=== PATIENT | male | born 1955 | race Caucasian/White ===

== ENCOUNTER 2025-02-01 10:27 | Inpatient (IN) | payer MEDICARE, OTHER, SELFPAY ==
--- NOTE | 2025-01-17 13:23 | CM ---
Addendum entered by Mariola Toth RN 02/02/25 08:30:
CM met with patient in room. Patient is agreeable to [facility].
PLAN: home with [facility].
Addendum entered by Mariola Toth RN 01/24/25 12:05:
Demographics: confirmed
Living situation: lives with son, patient will have a friend drive him.
Support Person Post Operatively: Friend, son
History of
VN: No
SNF: No
[facility], [facility] unable to accept. Patient will be referred to [facility]
Has patient purchased required equipment: no, cm advised patient to contact Luis Miguel at [facility]
PCP: Horacio
Pharmacy: [facility]
Post Operative Discharge Plan: Home with home care.
Original Note:
CM reviewed medical records. CM left message for orthopedic [place]. CM will remain available as needed.
[2025-01-20 11:14] LABS: Hematocrit 45.0 % (39.0-52.0); Hemoglobin 15.1 g/dL (13.0-18.0); Mean Corp Hgb Conc. 33.6 g/dL (33.0-37.0); Mean Corpuscular Volume 87.5 fL (80.0-94.0); Platelet Count 340 10^3/uL (130-400); Red Cell Dist. Width 13.2 % (11.5-14.5)
[2025-01-20 11:58] LABS: Glycohemoglobin (HgbA1c) 5.3 % (4.0-5.6)
[2025-01-20 12:06] LABS: ALT (SGPT) 22 U/L (0-50); AST (SGOT) 22 U/L (17-59); Albumin 4.4 g/dl (3.5-5.0); Alkaline Phosphatase 93 U/L (38-126); Blood Urea Nitrogen 12 mg/dl (9-20); Calcium 9.5 mg/dl (8.4-10.2); Carbon Dioxide 28 mmol/L (22-30); Chloride 103 mmol/L (98-107); Glucose 91 mg/dl (70-99); Potassium 4.8 mmol/L (3.5-5.1); Sodium 137 mmol/L (135-145); Total Protein 8.0 g/dl (6.3-8.2); eGFR > 60.00
[2025-01-23 13:35] VITALS: BMI 27.4
[2025-01-27 09:24] VITALS: BMI 27.4
[2025-02-01] VITALS (12 sets, daily range): BP systolic 114–164; BP diastolic 73–103; PULSE 91; O2SAT 95; BMI 27.4
[2025-02-01] MEDS: TYLENOL 650 MG PO ×3 (10:42→20:11)
[2025-02-01] MEDS: CELEBREX 200 MG PO (10:43)
[2025-02-01] MEDS: NORMOSOL-R/PLASMALYTE-A 1000 IV ×2 (10:52→17:00)
--- NOTE | 2025-02-01 11:58 | W.PN.UPDATE ---
Update Note
Progress Note Update
L hip OA s/p L CARMEN w/ Dr Pearl 02/01/25
DVT prophylaxis - ASA, b/l venous foot pumps
HTN - + parameters - monitor BP
PACs, asymptomatic - monitor on tele
RODY per records, no current device - monitor O2
- IS
- Add supplemental O2 HS
Balance difficulties - on fall precautions
HLD
Scoliosis per imaging
Melanoma, status post Mohs
Rosacea.
Actinic keratosis
Anxiety with panic disorder
Remote history of tobacco abuse
[2025-02-01] MEDS: ROXICODONE 5 MG PO (15:02)
[2025-02-01] MEDS: DILAUDID 0.25 MG IV ×2 (15:22→15:37)
--- NOTE | 2025-02-01 18:15 | OR.RPT ---
Operative Report
Operative Report
Orthopaedic Surgery Operative Note
DATE OF OPERATION: 02/01/2025
PREOPERATIVE DIAGNOSES: Osteoarthritis, left hip
POSTOPERATIVE DIAGNOSES: Same
OPERATION PERFORMED: Left total hip arthroplasty.
SURGEON: Gian Pearl MD
BIAS CUTTER HELPER: José Browning PA-C who helped with patient and limb positioning and retraction
ANESTHESIA: Spinal
COMPLICATIONS: None.
ESTIMATED BLOOD LOSS: 50 mL.
DRAINS: None
SPECIMEN: None
FINDINGS: Advanced articular cartilage wear on the femoral head and acetabulum.
IMPLANTS:
Biomet G7 Acetabular Shell, cluster hole, size 58
Biomet G& Highly Crosslinked PE Liner, neutral
Maurilio M/L Taper femoral stem, size 13.5 with standard neck length and standard offset
Biolox Ceramic Head, size 40mm +3.5mm
INDICATIONS: The patient presented to my office with debilitating left leg pain due to osteoarthritis. We reviewed the natural history of this problem, as well as the risks, benefits, and alternatives of various treatment options. The patient
exhausted all nonoperative treatment options and wished to proceed with hip replacement surgery. The patient understood the risks which included, but were not limited to, bleeding, infection, failure to relieve pain, more pain than preop, damage to
blood vessels and nerves, need for reoperation, mechanical failure of the implants, wound healing problems, stiffness, instability, blood clot, pulmonary embolism, myocardial infarction, pneumonia, arrhythmia, CVA, and . The patient accepted
these risks and wished to proceed. All questions were answered, and informed consent was obtained.
PROCEDURE IN DETAIL: The patient was identified in the preoperative holding area. The left hip was identified as the operative site. The patient was taken in the operating room and transferred to the operative table. Spinal anesthesia was
performed. IV antibiotics and tranexamic acid were administered. The patient was placed in the lateral position with Stulberg hip positioners. Axillary roll was placed. The down leg was well padded. All bony prominences were well padded. The
operative limb was prepped and draped in the usual sterile fashion.
Time out was performed. A posterolateral approach to the hip was used. The skin incision was centered over the greater trochanter. This was taken down sharply through subcutaneous tissues. Meticulous hemostasis was achieved throughout the case with
electrocautery. We split the fascia darrel in line with skin incision. I split the gluteus lara bluntly. We cauterized all crossing vessels as we split it. I palpated the sciatic nerve and made sure it was well posterior in the operative field. It
was protected throughout the case.
I performed a partial bursectomy to identify the short external rotators. The gluteus medius and minimus were identified and retracted anteriorly. I incised the piriformis tendon and conjoint tendon at their insertions. These were tagged for later
repair. I then performed a trapezoidal capsulotomy. The edges were tagged for later repair. I referenced the cut edge of the capsular flap to 2 fixed points on the greater trochanter for assistance with recreation of limb length and offset. I then
dislocated the hip posteriorly. I performed a femoral neck osteotomy approximately 10 mm above the lesser trochanter, as per preoperative templating. The femoral head measured 55 mm in outer diameter. The distance between the neck cut and center of
the femoral head was measured to be 40 mm. I placed a curve hohmann retractor over the anterior lip of the acetabulum between the labrum and the anterior hip capsule. A second retractor was placed inferiorly just distal to the transverse acetabular
ligament. Circumferential view of the acetabulum was achieved. I incised the labrum and pulvinar with electrocautery. I started with a 55 mm reamer and reamed down to the medial wall. I then sequentially reamed up to a 57mm reamer. This gave a nice
bed of bleeding bone with excellent column support anteriorly and posteriorly. I impacted the acetabular shell in approximately 40 degrees of abduction and 20 degrees of anteversion. I matched the anteversion of the transverse acetabular ligament. I
also made sure that the anterior rim of the socket was not proud of the anterior wall to minimize the chance of iliopsoas tendinitis. I confirmed the cup was well-seated. I then impacted a neutral liner and confirmed it was well seated with the
locking mechanism.
On the femoral side, I use a box osteotome to open the proximal starting point. I found the canal with a Charnley awl and a lateralizing reamer. I then used the Maurilio M/L taper broaches sequentially to prepare the femoral canal. The size 13.5 came
to a stop at the desired level and had excellent axial and rotational stability. We trialed with a trial ball head. The hip was taken through a complete range of motion. It was noted to be stable in extension without impingement. It was stable in
the position of sleep and in flexion with internal rotation. The limb length and offset were checked compared to the capsular flap and was appropriate. The measured length between the lesser trochanter and center of the femoral head was 42.5mm.
I removed the trials. I impacted the femoral implant to match the mechoopda version. It had excellent axial and rotational stability. Trial ball head was placed, and I reduced the hip and took the hip through a complete range of motion. There was no
impingement in external rotation and extension. Position of sleep was stable. At 90 degrees of flexion and slight adduction, the hip could be internally rotated to 90 degrees with no subluxation. I palpated the sciatic nerve, which was tension free
and unharmed. Based on our capsular flap measurement, we had restored the offset and leg length. The trial ball head was removed, and the final ball head was impacted onto a clean and dry Bennett taper. The hip was reduced.
A dilute betadine soak was performed for approximately 3 minutes, and then the hip was copiously irrigated. I repaired the capsule, piriformis, and conjoint tendon with #2 Ethibond to drill holes in the greater trochanter. Local anesthetic was
injected. The fascia darrel was closed with #1 PDS in running fashion. The subcutaneous tissues were closed with 2-0 PDS in running fashion. The skin was reapproximated with 3-0 Monocryl subcuticular suture. I placed a skin glue dressing followed by a
Mepilex Ag dressing. The patient awoke from anesthesia without difficulty. Sponge and instrument counts were correct x2 at the end of the case.
I was present and participated in the entire procedure. I checked leg length at the ankles after transfer on the bed which was equal. The patient was sent to the recovery room in stable condition.
Geovani Pearl MD
[2025-02-01] MEDS: ASPIRIN 325 MG PO (18:43)
[2025-02-01] MEDS: COLACE PO (20:10)
[2025-02-01] MEDS: SENOKOT PO (20:10)
[2025-02-01] MEDS: ANCEF 5 IV (20:11)
[2025-02-01] MEDS: BACTROBAN 2% OINTMENT 1 APPLIC NASAL (20:11)
[2025-02-01] MEDS: DECADRON 4 MG PO (20:14)
[2025-02-01] MEDS: PEPCID 20 MG PO (22:20)
[2025-02-01] MEDS: NEURONTIN 300 MG PO (22:20)
[2025-02-01] MEDS: NORVASC 5 MG PO (22:20)
[2025-02-02] MEDS: TYLENOL 650 MG PO ×2 (00:03→08:33)
[2025-02-02 03:10] VITALS: BP 131/85
[2025-02-02] MEDS: ANCEF 5 IV (03:12)
[2025-02-02] MEDS: TYLENOL PO (04:22)
[2025-02-02] MEDS: ROXICODONE 5 MG PO ×2 (06:20→10:29)
[2025-02-02] MEDS: DECADRON 4 MG PO (08:33)
[2025-02-02] MEDS: CELEBREX 200 MG PO (08:33)
[2025-02-02] MEDS: SENOKOT 17.2 MG PO (08:33)
[2025-02-02] MEDS: COLACE 100 MG PO (08:33)
[2025-02-02] MEDS: ASPIRIN 325 MG PO (08:33)
[2025-02-02] MEDS: BACTROBAN 2% OINTMENT 1 APPLIC NASAL (08:33)
[2025-02-02 08:35] VITALS: BP 133/83
[2025-02-02 08:38] VITALS: BP 115/83; BP 152/101; PULSE 107; O2SAT 94
--- NOTE | 2025-02-02 09:15 | W.PN.ORTHO ---
Today's Communication / Plan
-
Await PT recs. Did well overall w/ OT.
D/c early this AM if remaining clinically stable.
Assessment
.
Distal Motor Intact: Yes
Dressing:
Clean, dry and intact.
Assessment:
L hip OA s/p L CARMEN w/ Dr Pearl 02/01/25
- EARLY DISCHARGE
DVT prophylaxis - ASA, b/l venous foot pumps
HTN - + parameters - BPs overall stable
PACs, asymptomatic - rhythm stable on tele
RODY per records, no current device - O2 stable on RA by POD 1
- IS
- Add supplemental O2 HS
Balance difficulties - on fall precautions
HLD
Scoliosis per imaging
Melanoma, status post Mohs
Rosacea.
Actinic keratosis
Anxiety with panic disorder
Remote history of tobacco abuse
Plan
.
Surgery / Date: L CARMEN w/ Dr Pearl 02/01/25
DVT Prophylaxis: Aspirin
Activity:
Out of bed.
PT/OT
Discharge Plan: Home w/ VN
Subjective
.
.:
Patient resting comfortably in his chair.
L hip pain, at its worst, 4-5/10. Patient overall happy w/ current pain meds.
Denies any new significant complaints.
Eager for potential d/c today.
Vital Signs and Labs
.
Vital Signs and Labs:
Lab Results
01/20/25 10:06
01/20/25 10:06
Temp Pulse Resp BP Pulse Ox
98.2 F 102 18 133/83 97
02/02/25 08:35 02/02/25 08:35 02/02/25 08:35 02/02/25 08:35 02/02/25 08:35
Non-invasive Hgb result: 15.9
Physical Exam
-
HEENT: No pallor, cyanosis, or jaundice. Throat clear.
NECK: Supple. No JVD.
RESPIRATORY: Lungs clear to auscultation.
CVS: S1, S2 normal. RRR.�
ABDOMEN: Soft, non-tender. No distension.
EXTREMITIES: Strength equal, no calf pain with palpation/dorsiflexion. Calves soft.
HAND ETCHER HELPER: AOx3. No focal deficits. firestopper technician grossly intact
--- NOTE | 2025-02-02 09:20 | W.DS.TRANS ---
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
-
Discharge Instructions:
Sleep Apnea Risk Intermediate
Discharge Diagnosis/Procedures L hip OA s/p L CARMEN w/ Dr Pearl 02/01/25
Diet Regular
Additional Diets Adequate hydration, minimize opioids, and wear
TEDs stockings to prevent low blood pressure/
dizziness.
Activity As tolerated,With Walker
Driving Restrictions Not until seen by your Dr
Bathing Restrictions OK to Shower
Other Services PT,VN
Wound Care Leave dressing on until seen by surgeon's office
for follow-up.
Instructions:
Stand-Alone Forms: Total Hip/Knee Replacement D/C
Changes to Home Medications: Yes
Discharge Medications:
DC Medications w/original date entered in [employer]
mupirocin 2 % topical ointment 1 applic intranasal BID #1 tube 01/20/25
celecoxib 200 mg capsule (Celebrex) 200 mg PO DAILY #14 caps 01/26/25
dexamethasone 4 mg tablet 4 mg PO BID Anti-inflammatory #7 tabs 01/26/25
famotidine 20 mg tablet (Pepcid) 20 mg PO HS #30 tabs 01/26/25
gabapentin 300 mg capsule 300 mg PO HS neuropathic pain/sleep #10 caps 01/26/25
ondansetron HCl 4 mg tablet 4 mg PO Q6H PRN nausea and vomiting #30 tabs 01/26/25
oxycodone 5 mg tablet 5 - 10 mg (1 - 2 x 5 mg) PO Q6H PRN moderate-severe pain #30 tabs 01/26/25
acetaminophen 500 mg tablet (Acetaminophen Extra Strength) 1,000 mg (2 x 500 mg) PO Q6H #60 tabs 02/02/25
amlodipine 5 mg tablet 5 mg PO HS Blood Pressure #1 tab 02/02/25
aspirin 325 mg tablet 325 mg PO DAILY #30 tabs 02/02/25
docusate sodium 100 mg capsule 100 mg PO BID #30 caps 02/02/25
magnesium hydroxide 400 mg/5 mL oral suspension (Milk of Magnesia) 30 ml PO HS PRN constipation #3,780 mL 02/02/25
sennosides 8.6 mg tablet (Celeste-elisa) 17.2 mg (2 x 8.6 mg) PO BID #30 tabs 02/02/25
Home Medication Changes
celecoxib 200 mg capsule (Celebrex) 200 mg PO DAILY #14 caps 01/26/25
dexamethasone 4 mg tablet 4 mg PO BID Anti-inflammatory #7 tabs 01/26/25
famotidine 20 mg tablet (Pepcid) 20 mg PO HS #30 tabs 01/26/25
gabapentin 300 mg capsule 300 mg PO HS neuropathic pain/sleep #10 caps 01/26/25
ondansetron HCl 4 mg tablet 4 mg PO Q6H PRN nausea and vomiting #30 tabs 01/26/25
oxycodone 5 mg tablet 5 - 10 mg (1 - 2 x 5 mg) PO Q6H PRN moderate-severe pain #30 tabs 01/26/25
acetaminophen 500 mg tablet (Acetaminophen Extra Strength) 1,000 mg (2 x 500 mg) PO Q6H #60 tabs 02/02/25
aspirin 325 mg tablet 325 mg PO DAILY #30 tabs 02/02/25
docusate sodium 100 mg capsule 100 mg PO BID #30 caps 02/02/25
magnesium hydroxide 400 mg/5 mL oral suspension (Milk of Magnesia) 30 ml PO HS PRN constipation #3,780 mL 02/02/25
sennosides 8.6 mg tablet (Celeste-elisa) 17.2 mg (2 x 8.6 mg) PO BID #30 tabs 02/02/25
Pending Results: No
[2025-02-02 09:53] VITALS: BP 122/77; BP 133/78; PULSE 98; O2SAT 96
== END 2025-02-02 11:45 | disposition home health service (06) | DRG 470 ==
LOC: 2 SOUTH 10:27
PROVIDERS: ADMITTING PHYSICIAN Orthopaedic Surgery; FAMILY PHYSICIAN Internal Medicine
PROC: 0SRB03A Replacement of Left Hip Joint with Ceramic Synthetic Substitute, Uncemented, Open Approach (ICD-10-PCS; 2025-02-01)
DX: M16.12 Unilateral primary osteoarthritis, left hip (principal); I10 Essential (primary) hypertension; E78.5 Hyperlipidemia, unspecified; G47.33 Obstructive sleep apnea (adult) (pediatric); M41.9 Scoliosis, unspecified; Z85.820 Personal history of malignant melanoma of skin; L71.9 Rosacea, unspecified; L57.0 Actinic keratosis; F41.0 Panic disorder [episodic paroxysmal anxiety]; Z87.891 Personal history of nicotine dependence; I49.1 Atrial premature depolarization; Z59.82 Transportation insecurity
CPT/HCPCS: 36415; 73502; 80053; 83036; 85027; 87070; 93005; 97110; 97116; 97162; 97166; 97530; 97535; C1713; C1776